=== PATIENT | male | born 1975 | race Caucasian/White ===

== ENCOUNTER 2017-09-06 08:14 | Emergency (ER) | payer BC ==
[~2017-09-06] VITALS: Ht 188 cm; Wt 98.0 kg
[~2017-09-06 08:14] MED LIST: NO HOME MEDS
[2017-09-06 08:22] VITALS: TEMP 37; Ht 188 cm; Wt 98.0 kg
[2017-09-06] MEDS ORDERED: MoRPHine SULFATE 10 MG/ML CARP/VIAL IV STA (08:28)
[2017-09-06] MEDS ORDERED: ONDANSETRON INJ 2 MG/ML 2 ML VIAL IV STA (08:28)
--- NOTE | 2017-09-06 09:03 | DIAGNOSTIC IMAGING REPORT ---
HEAD WITHOUT CONTRAST (CT) CT DOSE: 614.27 mGy.cm HISTORY: Headache. Vomiting. JOAQUIN TECHNIQUE: Multiaxial CT images of the head were performed without the use of intravenous contrast. A dose lowering technique was utilized adhering to the principles of ALARA. Comparison: None. Findings: The paranasal sinuses and mastoid air cells are clear. The calvarium and skull base are intact. The ventricles and sulci are within normal limits. There is no mass, hematoma, midline shift, or acute infarct. Impression: No acute intracranial abnormality. The above report was generated using voice recognition software. It may contain grammatical, syntax or spelling errors. Electronically signed by: Trip Parada M.D. 09/06/2017 9:01 AM Dictated Date/Time: 09/06/2017 9:01 AM
[2017-09-06] MEDS ORDERED: KETOROLAC TROMETHAMINE 30 MG/ML VIAL IV STA (09:10)
[2017-09-06 09:18] LABS: BASO % 0.2 %; BASO ABS # 0.02 K/uL (0-0.2); COMPLETE YES; EOS % 0.2 %; HEMATOCRIT 44.9 % (42-52); IG% 0.2 %; LYMPH % 13.7 %; LYMPH ABS # 1.13 K/uL (1.2-3.4); MEAN CELL VOLUME 90.2 fL (80-100); MEAN CORPUSCULAR HEMOGLOBIN 32.3 pg (25-34); MEAN CORPUSCULAR HGB CONC 35.9 g/dl (32-36); MEAN PLATELET VOLUME 9.8 fL (7.4-10.4); MONO % 6.4 %; NEUT % 79.3 %; PLATELET COUNT 200 K/uL (130-400); RED BLOOD COUNT 4.98 M/uL (4.7-6.1); WHITE BLOOD COUNT 8.25 K/uL (4.8-10.8)
[2017-09-06 09:35] LABS: BUN/CREATININE RATIO 10.3 (10-20); CALCIUM 9.2 mg/dl (8.5-10.1); CREATININE 0.99 mg/dl (0.60-1.40); POTASSIUM 3.7 mmol/L (3.5-5.1)
[2017-09-06] MEDS ORDERED: DiphenhydrAMINE HCL 50 MG/ML VIAL IV STA (09:53)
[2017-09-06] MEDS ORDERED: DEXAMETHASONE SOD INJ 10 MG/ML VIAL IV ONE (10:00)
[2017-09-06 11:22] VITALS: BP 107/56; PULSE 58; O2SAT 98
[2017-09-06 11:34] LABS: URINE APPEARANCE CLEAR (CLEAR); URINE BILIRUBIN NEG (NEG); URINE COLOR YELLOW; URINE EPITHELIAL CELL AUTO >30 /lpf (0-5); URINE NITRITE NEG (NEG); URINE PH 8.5 (4.5-7.5); UROBILINOGEN NEG (NEG); ZZUR CULT IF INDIC CLEAN CATCH NO
[2017-09-06 11:45] LABS: MANUAL MICROSCOPIC REQUIRED? NO; REVIEW REQ? YES; SULFASALICYLIC ACID NEG (NEG)
[2017-09-06 11:50] LABS: LYME DISEASE AB IGG NEG (NEG); LYME DISEASE AB IGM NEG (NEG)
--- NOTE | 2017-09-06 12:03 | EMERGENCY ROOM VISIT NOTE ---
History First contact with patient: 08:21 Chief Complaint: ILLNESS Stated Complaint: SEVERE HEADACHE 48HOURS, VOMITING, CHILLS, FEVER History of Present Illness The patient is a 42 year old male who presents to the Emergency Room with complaints of illness. The patient states that he has had a generalized headache for the past 48 hours. He states he did take Tylenol and Advil which slightly took the edge off. He has not had any medications this morning. The patient also states he has fever and chills. He also has been vomiting but has been able to keep down fluids. He denies any chest pain, shortness of breath, cough, any upper respiratory symptoms, abdominal pain, diarrhea. Patient has not had the flu shot. The patient also states he feels achy all over with some increased low back pain. He has had some urinary frequency but he states he is drinking a lot. He denies any hematuria, dysuria or urgency. Review of Systems 10 system review was performed and was negative unless stated otherwise history of present illness. Past Medical/Surgical History No significant past medical history Social History Smoking Status: Never Smoker Smokeless Tobacco Use: No Alcohol Use: occasionally Marital Status: Housing Status: lives with family Occupation Status: employed Current/Historical Medications No Active Prescriptions or Reported Meds Physical Exam Vital Signs Date Time Temp Pulse Resp B/P (MAP) Pulse Ox O2 Delivery O2 Flow Rate FiO2 09/06/17 11:22 58 20 107/56 98 Room Air 09/06/17 10:07 63 15 97/43 98 Room Air 09/06/17 08:33 59 09/06/17 08:22 37.0 71 15 123/68 98 Room Air Physical Exam GENERAL: 42-year-old white male appears in no acute distress. MENTAL Status: Alert and oriented 3. EYES: PERRLA. EOMs intact. Funduscopic exam unremarkable. EARS: Canals clear. TMs without fluid level noted. NOSE: Nasal mucosa with mild engorgement and erythema. PHARYNX: No erythema or edema noted. Airway is adequate. NECK: Supple, no lymphadenopathy noted. No carotid bruits noted. LUNGS: Clear auscultation without wheezes rales or rhonchi. CARDIAC: Regular rate and rhythm without murmur. Pulses is full and equal throughout. ABDOMEN: Positive bowel sounds all 4 quadrants. Soft, nontender to palpation without organomegaly or masses. NEURO:Cranial nerves two through 12 intact. Cerebellar function intact with [id number]. Fine motor intact with alternating finger motions. CERVICAL SPINE: Patient is nontender to palpation over the spinous process. Patient is able to touch his chin to his chest without difficulty. Medical Decision & Procedures ER Provider Diagnostic Interpretation: HEAD WITHOUT CONTRAST (CT) CT DOSE: 614.27 mGy.cm HISTORY: Headache. Vomiting. JOAQUIN TECHNIQUE: Multiaxial CT images of the head were performed without the use of intravenous contrast. A dose lowering technique was utilized adhering to the principles of ALARA. Comparison: None. Findings: The paranasal sinuses and mastoid air cells are clear. The calvarium and skull base are intact. The ventricles and sulci are within normal limits. There is no mass, hematoma, midline shift, or acute infarct. Impression: No acute intracranial abnormality. Laboratory Results 09/06/17 08:35 Red Blood Count 4.98, Mean Corpuscular Volume 90.2, Mean Corpuscular Hemoglobin 32.3, Mean Corpuscular Hemoglobin Concent 35.9, Mean Platelet Volume 9.8, Neutrophils (%) (Auto) 79.3, Lymphocytes (%) (Auto) 13.7, Monocytes (%) (Auto) 6.4, Eosinophils (%) (Auto) 0.2, Basophils (%) (Auto) 0.2, Neutrophils # (Auto) 6.53, Lymphocytes # (Auto) 1.13, Monocytes # (Auto) 0.53, Eosinophils # (Auto) 0.02, Basophils # (Auto) 0.02 09/06/17 08:35 Test 09/06/17 08:35 09/06/17 08:48 09/06/17 11:18 White Blood Count 8.25 K/uL (4.8-10.8) Red Blood Count 4.98 M/uL (4.7-6.1) Hemoglobin 16.1 g/dL (14.0-18.0) Hematocrit 44.9 % (42-52) Mean Corpuscular Volume 90.2 fL (80-100) Mean Corpuscular Hemoglobin 32.3 pg (25-34) Mean Corpuscular Hemoglobin Concent 35.9 g/dl (32-36) Platelet Count 200 K/uL (130-400) Mean Platelet Volume 9.8 fL (7.4-10.4) Neutrophils (%) (Auto) 79.3 % Lymphocytes (%) (Auto) 13.7 % Monocytes (%) (Auto) 6.4 % Eosinophils (%) (Auto) 0.2 % Basophils (%) (Auto) 0.2 % Neutrophils # (Auto) 6.53 K/uL (1.4-6.5) Lymphocytes # (Auto) 1.13 K/uL (1.2-3.4) Monocytes # (Auto) 0.53 K/uL (0.11-0.59) Eosinophils # (Auto) 0.02 K/uL (0-0.5) Basophils # (Auto) 0.02 K/uL (0-0.2) RDW Standard Deviation 41.1 fL (36.4-46.3) RDW Coefficient of Variation 12.5 % (11.5-14.5) Immature Granulocyte % (Auto) 0.2 % Immature Granulocyte # (Auto) 0.02 K/uL (0.00-0.02) Anion Gap 8.0 mmol/L (3-11) Est Creatinine Clear Calc Drug Dose 115.4 ml/min Estimated GFR () 110.0 Estimated GFR (Non- 94.9 BUN/Creatinine Ratio 10.3 (10-20) Calcium Level 9.2 mg/dl (8.5-10.1) Total Bilirubin 0.6 mg/dl (0.2-1) Direct Bilirubin 0.1 mg/dl (0-0.2) Aspartate Amino Transf (AST/SGOT) 11 U/L (15-37) Alanine Aminotransferase (ALT/SGPT) 17 U/L (12-78) Alkaline Phosphatase 26 U/L (45-117) Total Protein 7.4 gm/dl (6.4-8.2) Albumin 3.8 gm/dl (3.4-5.0) Lipase 161 U/L (73-393) Lyme Disease IgG Antibody NEG (NEG) Lyme Disease IgM Antibody NEG (NEG) Influenza Type A Antigen Neg for Influ A (NEG) Influenza Type B Antigen Neg for Influ B (NEG) Urine Color YELLOW Urine Appearance CLEAR (CLEAR) Urine pH 8.5 (4.5-7.5) Urine Specific Bud 1.020 (1.000-1.030) Urine Protein NEG (NEG) Urine Glucose (UA) NEG (NEG) Urine Ketones TRACE (NEG) Urine Occult Blood NEG (NEG) Urine Nitrite NEG (NEG) Urine Bilirubin NEG (NEG) Urine Urobilinogen NEG (NEG) Urine Leukocyte Esterase NEG (NEG) Urine WBC (Auto) 1-5 /hpf (0-5) Urine RBC (Auto) 0-4 /hpf (0-4) Urine Hyaline Casts (Auto) 1-5 /lpf (0-5) Urine Epithelial Cells (Auto) >30 /lpf (0-5) Urine Bacteria (Auto) NEG (NEG) Urine Renal Epithelial Cells /lpf (0-5) Medications Administered Medications (Trade) Dose Ordered Sig/Emelia Route Start Time Stop Time Status Last Admin Dose Admin Morphine Sulfate (MoRPHine SULFATE INJ) 6 mg NOW STAT IV 09/06/17 08:28 09/06/17 08:31 DC 09/06/17 08:47 6 MG Ondansetron HCl (Zofran Inj) 4 mg NOW STAT IV 09/06/17 08:28 09/06/17 08:31 DC 09/06/17 08:46 4 MG Ketorolac Tromethamine (Toradol Inj) 30 mg NOW STAT IV 09/06/17 09:10 09/06/17 09:11 DC 09/06/17 09:23 30 MG Diphenhydramine HCl (Benadryl Inj) 25 mg NOW STAT IV 09/06/17 09:53 09/06/17 09:55 DC 09/06/17 10:06 25 MG Dexamethasone Sodium Phosphate (Decadron Inj) 10 mg NOW ONCE IV 09/06/17 10:00 09/06/17 10:01 DC 09/06/17 10:07 10 MG ED Course The patient was evaluated. IV access was obtained. CBC and differential, renal profile, LFTs and lipase levels were ordered. Urinalysis was ordered. Since the patient has been keeping down fluids I am holding off on the IV fluids until we see if he is dehydrated from his renal profile. A CT of the head was ordered and interpreted by the radiologist as above without any acute findings. The patient was informed of the findings. He was reevaluated and stated he still had a headache therefore he was given Toradol 30 mg IV.. Rapid influenza was negative for influenza A and influenza B.. The patient was given morphine 6 mg IV and Zofran 4 mg ODT. Labs are reviewed and were unremarkable. Urinalysis was negative. Lyme titer was drawn which was also negative. The patient was informed of all findings. He was given Decadron and Benadryl for the headache. He was reevaluated and stated his headache was better. The patient also states that he can take ibuprofen he now he has an allergy to aspirin. The patient was discharged home in stable condition with his driving. Medical Decision Differential diagnosis include Lyme's disease, viral syndrome, influenza, intracranial bleed, subarachnoid hemorrhage, UTI, pyelonephritis [place] Drug Monitoring Program Search Results: patient reviewed within database Medication Reconcilliation Current Medication List: was personally reviewed by me Blood Pressure Screening Patient's blood pressure: Normal blood pressure Impression Primary Impression: Viral syndrome Departure Information Dispostion Home / Self-Care Condition GOOD Prescriptions No Active Prescriptions or Reported Meds Forms HOME CARE DOCUMENTATION FORM, IMPORTANT VISIT INFORMATION, WORK / SCHOOL INSTRUCTIONS Patient Instructions ED Viral Syndrome, [facility] Additional Instructions Push fluids, rest. Ibuprofen 600 mg every 6 hours with food for fever, body aches and headache. He may also use Benadryl 25-50 mg every 6 hours for headache relief. If symptoms are not improving in 3-4 days, follow-up with your family doctor or return to ER.
== END 2017-09-06 12:12 | disposition home or self-care (01) ==
LOC: C.EDB 08:16 → C.EDA 12:12
DX: B34.9 Viral infection, unspecified (principal)